=== PATIENT | female | born 1980 | race Caucasian/White ===

== ENCOUNTER 2017-12-08 09:55 | Outpatient (RCR) | payer OTHER ==
[~2017-12-08 09:55] MED LIST: ADDERALL XR10 MG PO
== END 2018-03-08 | disposition home or self-care (01) ==
LOC: MKS.ESL.PT
DX: Z02.71 Encounter for disability determination (principal); M54.5 Low back pain; M17.12 Unilateral primary osteoarthritis, left knee

== ENCOUNTER → 2018-06-06 | Outpatient (CLI) | payer MEDICAID | LOC: MHCPAIN 13:09 | DX: G89.29 Other chronic pain (principal); M47.817 Spondylosis without myelopathy or radiculopathy, lumbosacral region; M79.2 Neuralgia and neuritis, unspecified | CPT/HCPCS: G0463 ==